=== PATIENT | male | born 1960 | race Caucasian/White ===

== ENCOUNTER 2025-08-06 19:22 | Emergency (ER) | payer MEDICARE, SELFPAY ==
[2025-08-06 19:26] VITALS: BP 160/87
--- NOTE | 2025-08-06 19:40 | ED.GENMED ---
History of Present Illness
General
Chief Complaint: Swelling
Source: patient
Time Seen by Provider: 08/06/25 19:31
History of Present Illness
History of Present Illness:
65-year-old male presents to the emergency room for evaluation of left lower extremity swelling and redness. Patient has been experiencing the symptoms for the past week. He notes that the swelling seems to have improved when he wakes up in the
morning but as the day goes on the swelling returns. He has noted some red streaks of the leg. He does not have significant pain though it is mildly uncomfortable. He denies any chest pain or shortness of breath. He denies any recent periods of
immobilization, long car rides or plane rides. He takes medication for cholesterol but no other prescription medications. He denies any trauma to the left leg. He is able to ambulate.
Phy Exam
Physical Exam
Physical Exam:
General: Awake, Alert, Oriented X3. No acute distress.
Vitals: unremarkable
Head: Atraumatic
Eyes: Pupils equal, EOMI
Neck: Trachea midline
Lungs: Clear and equal b/l
Heart: Regular rate, no murmurs
Abd: Soft, Nontender, No pulsatile mass
Neuro: Nonfocal
Skin: Warm, dry, no rash
Extremities: pulses equal b/l, mild swelling noted left lower extremity with some areas of erythema noted in the medial thigh and medial upper calf. There are palpable superficial vessels in these areas.
Scores
Heart Failure Risk
Heart Failure Risk Score: Not Applicable
Course
Orders/Labs/Results
Orders:
Orders
08/06/25 19:40
US Periph Venous LOWER Ext LT Urgent
Comment:
Reason For Exam: swelling/redness x 1 week
08/06/25 19:53
Basic Metabolic Panel Urgent
Complete Blood Count/With Diff Urgent
Abnormal Lab Results
08/06/25
19:53
Immature Gran % 0.6 H %
(0-0.5)
Sodium 134 L mmol/L
(135-145)
BUN 25 H mg/dl
(9-20)
Glucose 142 H mg/dl
(70-99)
08/06/25 19:53
08/06/25 19:53
Vital Signs
Initial and Last Documented VS:
Initial Vital Signs
Temp Pulse Resp BP Pulse Ox
97.8 F 72 16 160/87 99
08/06/25 19:26 08/06/25 19:26 08/06/25 19:26 08/06/25 19:26 08/06/25 19:26
Last Documented Vital Signs
Temp Pulse Resp BP Pulse Ox
97.8 F 72 16 160/87 99
08/06/25 19:26 08/06/25 19:26 08/06/25 19:26 08/06/25 19:26 08/06/25 19:42
MDM/Problems Addressed
Differential Diagnosis Includes:
Cellulitis, DVT, superficial thrombophlebitis
MDM/Problems Addressed:
Patient presents with some swelling of the left leg and some areas of redness. Ultrasound shows no DVT. Labs are unremarkable. Physical exam seems most consistent with superficial thrombophlebitis. Treat with warm compresses. Will cover with a
course of antibiotics. Follow-up as an outpatient with primary. Patient will also begin taking a baby aspirin a day.
*Pulse Oximetry
SaO2: 99
Oxygen Mode of Delivery: Room air
Patient hypoxic: no
*Critical Care Note
Total Time (30-74mins, 75-104mins- exclusive of procedures): Not Applicable
ED Attending Note
-
Portions of this chart may have been created with voice recognition software.� Occasional wrong word or��sound alike� substitutions may have occurred due to the inherent limitations of voice recognition software.
Discharge Plan
Departure
Patient Disposition: Home (Routine Discharge)
Date of Disposition: 08/06/25
Time of Disposition: 20:44
Patient with high blood pressure during this ER visit?: Yes
Condition: Good
Discharge Problem:
Swelling of left lower extremity, Superficial thrombophlebitis of left leg
Instructions: Superficial vein phlebitis and thrombosis
Prescriptions:
New
cephalexin 500 mg capsule
500 mg PO BID 7 Days Qty: 14 0RF
Interventions
Interventions:
*General Assessment Last Done: 08/06/25 19:26
*Neglect/Abuse Screening Last Done: 08/06/25 19:26
*ED COVID-19 Vaccine History Last Done: 08/06/25 20:00
*ED Influenza Vaccine History Last Done: 08/06/25 20:00
[facility] Fall Risk Assessment Tool Last Done: 08/06/25 20:00
*Risk Screen - Suicide (C-SSRS) Last Done: 08/06/25 19:28
*Nursing Disposition Last Done: 08/06/25 20:59
ED-Skin Assessment Last Done: 08/06/25 20:00
Discharge Date and Time
Discharge Date/Time: 08/06/25 21:03
Print Language: IRISH
[2025-08-06 20:03] LABS: Hematocrit 40.9 % (39.0-52.0); Hemoglobin 14.3 g/dL (13.0-18.0); Mean Corp Hgb Conc. 35.0 g/dL (33.0-37.0); Mean Corpuscular Volume 86.7 fL (80.0-94.0); Nucleated Red Blood Cells % 0 % (-); Platelet Count 166 10^3/uL (130-400); Red Cell Dist. Width 12.5 % (11.5-14.5)
[2025-08-06 20:16] LABS: Blood Urea Nitrogen 25 mg/dl (9-20); Calcium 9.2 mg/dl (8.4-10.2); Carbon Dioxide 24 mmol/L (22-30); Chloride 104 mmol/L (98-107); Glucose 142 mg/dl (70-99); Potassium 3.9 mmol/L (3.5-5.1); Sodium 134 mmol/L (135-145); eGFR > 60.00
== END 2025-08-06 21:03 | disposition home or self-care (01) ==
LOC: EMR 19:22
PROVIDERS: EMERGENCY PHYSICIAN Emergency Medicine; FAMILY PHYSICIAN Family Medicine
DX: I80.02 Phlebitis and thrombophlebitis of superficial vessels of left lower extremity (principal)
CPT/HCPCS: 99285; 80048; 85025; 93971